=== PATIENT | male | born 1965 ===

== ENCOUNTER 2018-08-05 17:07 | Observation (INO) | payer MEDICAID, MEDICARE ==
[2018-08-05] MEDS ORDERED: Sodium Chloride 0.9% 1,000 ML IV ONE (17:34)
[2018-08-05] MEDS ORDERED: (Novolin R) Insulin Human Regular 100 units/ml vial IVP STA (17:43)
--- NOTE | 2018-08-05 17:48 | C.PDOC ---
History Of Present Illness 52 year old male with hx of IDDM presents to the emergency department with complaints of palpitations and muscle cramps prior to arrival. Patient states that he was driving when he suddenly became lightheaded and had chest tightness. . Patient denies chest pain now and no shortness of breath. He reports feeling better in the ED as of now. Time Seen by Provider: 08/05/18 17:29 Chief Complaint (Nursing): Palpitations History Per: Patient History/Exam Limitations: no limitations Onset/Duration Of Symptoms: Hrs Current Symptoms Are (Timing): Better Quality: denies: "Pain" Associated Symptoms: denies: Nausea, Dyspnea, Diaphoresis, Syncope Past Medical History Reviewed: Historical Data, Nursing Documentation, Vital Signs Vital Signs: Last Vital Signs Temp 98.5 F 08/05/18 17:11 Pulse 87 08/05/18 17:11 Resp 20 08/05/18 17:11 BP 147/89 08/05/18 17:11 Pulse Ox 98 08/05/18 17:11 - Medical History PMH: Asthma, Diabetes, HTN, Hyperlipidemia Surgical History: No Surg Hx Family History: States: No Known Family Hx - Social History Hx Alcohol Use: No Hx Substance Use: No Review Of Systems Except As Marked, All Systems Reviewed And Found Negative. Constitutional: Negative for: Fever, Chills Cardiovascular: Positive for: Palpitations, Light Headedness. Negative for: Chest Pain Respiratory: Negative for: Cough, Shortness of Breath Musculoskeletal: Positive for: Other (muscular cramps) Physical Exam - Physical Exam Appears: Non-toxic, No Acute Distress, Other (generalized weakness) Skin: Normal Color, Warm, Dry Head: Atraumatic, Normacephalic Eye(s): bilateral: Normal Inspection, PERRL, EOMI Nose: Normal Oral Mucosa: Moist Throat: Normal Neck: Normal, Supple Chest: Symmetrical, No Tenderness Cardiovascular: Rhythm Regular, No Murmur Respiratory: Normal Breath Sounds, No Rales, No Rhonchi, No Wheezing Gastrointestinal/Abdominal: Soft, No Tenderness Extremity: Normal ROM Neurological/Psych: Oriented x3, Normal Speech, Normal Cognition ED Course And Treatment - Laboratory Results Result Diagrams: 08/05/18 17:57 08/05/18 17:57 ECG: Interpreted By Me, Viewed By Me ECG Interpretation: Abnormal Interpretation Of ECG: Normal sinus rhythm at 78bpm, non-specific T-wave abnormality. O2 Sat by Pulse Oximetry: 98 (RA) Pulse Ox Interpretation: Normal Reassessment Condition: Improved Medical Decision Making Medical Decision Making: Plan: VBG EKG Chemistry CBC CXR Glucose POC Novolin R 10 unit IVP NaCl IV Fluids Urinalysis Disposition Discussed With DrIsa: Tamiko Hall (accepted) - Disposition Disposition: HOSPITALIZED Disposition Time: 18:59 Condition: STABLE Forms: [employer] [facility] (Croatian) - Clinical Impression Clinical Impression: Palpitations, Uncontrolled diabetes mellitus, Chest pain - Scribe Statement The provider has reviewed the documentation as recorded by the Scribe (Michael Robbinsqvi) Provider Attestation: All medical record entries made by the Scribe were at my direction and personally dictated by me. I have reviewed the chart and agree that the record accurately reflects my personal performance of the history, physical exam, medical decision making, and the department course for this patient. I have also personally directed, reviewed, and agree with the discharge instructions and disposition.
[2018-08-05 17:53] LABS: VENOUS BLOOD GAS BASE EXCESS 1.8 mmol/L (0.0-2.0); VENOUS BLOOD GAS PCO2 53 mmHg (40-60); VENOUS BLOOD GAS PO2 36 mm/Hg (30-55); VENOUS BLOOD PH 7.34 (7.32-7.43)
[2018-08-05] MEDS ORDERED: Sodium Chloride 0.9% 1,000 ML ONE (17:55)
[2018-08-05] MEDS ORDERED: (Novolin R) Insulin Human Regular 100 units/ml vial ONE (17:55)
[2018-08-05 18:03] LABS: BASO % 0.3 % (0.0-2.0); EOS % 0.9 % (0.0-4.0); HEMOGLOBIN 14.9 g/dL (12.0-18.0); LYMPH # 0.8 K/uL (1.0-4.3); LYMPH % 14.7 % (20.0-40.0); MEAN CELL VOLUME 87.9 fL (80.0-94.0); MEAN CORPUSCULAR HGB CONC 33.1 g/dL (33.0-37.0); MEAN PLATELET VOLUME 8.5 fL (7.2-11.7); MONO # 0.3 K/uL (0.0-0.8); MONO % 5.9 % (0.0-10.0); NEUT # 4.1 K/uL (1.8-7.0); NEUT % 78.2 % (50.0-75.0); NRBC % 0.1 % (0.0-2.0); RBC 5.14 Mil/uL (4.40-5.90); RED CELL DISTRIBUTION WIDTH 13.7 % (11.5-14.5); WHITE BLOOD COUNT 5.2 K/uL (4.8-10.8)
[2018-08-05 18:38] LABS: ALB/GLOB RATIO 1.4 (1.0-2.1); ALBUMIN 3.9 g/dL (3.5-5.0); ALT/SGPT 40 U/L (21-72); AST/SGOT 39 U/L (17-59); BLOOD UREA NITROGEN 16 mg/dL (9-20); CALCIUM 8.7 mg/dl (8.6-10.4); GFR NON-AFRICAN AMERICAN > 60
[2018-08-05 19:14] LABS: URINE BILIRUBIN NEGATIVE (NEGATIVE); URINE BLOOD NEGATIVE (NEGATIVE); URINE CLARITY Clear (Clear); URINE COLOR Straw (YELLOW); URINE GLUCOSE (UA) 3+ mg/dL (Normal); URINE LEUKOCYTE ESTERASE NEG Leu/uL (Negative); URINE PROTEIN NEGATIVE (NEGATIVE); URINE UROBILINOGEN NORMAL mg/dL (0.2-1.0)
[2018-08-05 19:42] LABS: VENOUS BLOOD GAS BASE EXCESS 1.5 mmol/L (0.0-2.0); VENOUS BLOOD GAS PCO2 46 mmHg (40-60); VENOUS BLOOD GAS PO2 51 mm/Hg (30-55); VENOUS BLOOD PH 7.38 (7.32-7.43)
--- NOTE | 2018-08-05 20:27 | CP.PCM.HP ---
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 Pt states he was driving his car this morning when he started feeling palpitations requiring him to come to the ED. Pt reports he forgotlevated blood sugars. Patient denies recent travel, sick contacts. to take his AM insulin. Patient denied chest pain, SOB, headaches, fevers, chills, nausea, vomiting, diarrhea, constipation, dysuria, hematuria during episode of palpitations. Patient reports 1 X having similar episode a few years back when he had elevated blood sugars. PMD: Dr. Jones Nogueira PMhx: Asthma, DM, HLD SHx: Hernia surgery, back surgery (unknown) Meds: Insulin (unsure amount and type), Pharmacy: [facility] pharmacy in [place] Allergies: NKDA SHx: Denies tobacco use, ETOH, illicit drug use FHx: Mother - CVA, heard "problems", HTN, HLD, arthritis, Father - diabetes, HLD Present on Admission - Present on Admission Any Indicators Present on Admission: No History of DVT/PE: No History of Uncontrolled Diabetes: No Urinary Catheter: No Decubitus Ulcer Present: No Review of Systems - Review of Systems All systems: reviewed and no additional remarkable complaints except - Constitutional Constitutional: As Per HPI Past Patient History - Past Social History Smoking Status: Never Smoked - CARDIAC Hx Hypertension: Yes - PULMONARY Hx Asthma: Yes - ENDOCRINE/METABOLIC Hx Diabetes Mellitus Type 2: Yes - PSYCHIATRIC Hx Substance Use: No - SURGICAL HISTORY Hx Surgeries: No - ANESTHESIA Hx Anesthesia: No Hx Anesthesia Reactions: No Meds Allergies/Adverse Reactions: Allergies Allergy/AdvReac Type Severity Reaction Status Date / Time No Known Allergies Allergy Unverified 08/05/18 17:11 Physical Exam - Constitutional Appears: Non-toxic, No Acute Distress - Head Exam Head Exam: ATRAUMATIC, NORMAL INSPECTION, NORMOCEPHALIC - Eye Exam Eye Exam: EOMI, Normal appearance, PERRL Pupil Exam: NORMAL ACCOMODATION - ENT Exam ENT Exam: Mucous Membranes Moist - Respiratory Exam Respiratory Exam: Clear to Auscultation Bilateral, NORMAL BREATHING PATTERN. absent: Rales, Rhonchi, Wheezes - Cardiovascular Exam Cardiovascular Exam: +S1, +S2. absent: Systolic Murmur - GI/Abdominal Exam GI & Abdominal Exam: Normal Bowel Sounds, Soft. absent: Distended, Firm, Guarding - Extremities Exam Extremities exam: Negative for: calf tenderness, pedal edema - Back Exam Back exam: absent: CVA tenderness (L), CVA tenderness (R) - Neurological Exam Neurological exam: Alert, Oriented x3 - Psychiatric Exam Psychiatric exam: Normal Affect, Normal Mood - Skin Skin Exam: Dry, Intact, Normal Color, Warm Results - Vital Signs Recent Vital Signs: Last Vital Signs Temp 98.5 F 08/05/18 17:11 Pulse 84 08/05/18 18:58 Resp 18 08/05/18 18:58 BP 143/91 H 08/05/18 18:58 Pulse Ox 98 08/05/18 18:59 - Labs Result Diagrams: 08/05/18 17:57 08/05/18 17:57 Labs: Laboratory Results - last 24 hr 08/05/18 08/05/18 08/05/18 17:38 17:40 17:45 WBC RBC Hgb Hct MCV MCH MCHC RDW Plt Count MPV Neut % (Auto) Lymph % (Auto) Coffee % (Auto) Eos % (Auto) Baso % (Auto) Neut # (Auto) Lymph # (Auto) Coffee # (Auto) Eos # (Auto) Baso # (Auto) pO2 36 VBG pH 7.34 VBG pCO2 53 VBG HCO3 25.4 VBG Total CO2 30.2 H VBG O2 Sat (Calc) 74.1 H VBG Base Excess 1.8 VBG Potassium 4.3 Sodium 136.0 Chloride 101.0 Glucose 583 H* Lactate 2.2 H FiO2 21.0 Crit Value Called To Ed Crit Value Called By Hung sanidad Crit Value Read Back Y Blood Gas Notified Time 1753 Potassium Carbon Dioxide Anion Gap BUN Creatinine Est GFR ( Amer) Est GFR (Non-Af Amer) POC Glucose (mg/dL) > 500 H* > 500 H* Random Glucose Calcium Magnesium Total Bilirubin AST ALT Alkaline Phosphatase Total Creatine Kinase Troponin I Total Protein Albumin Globulin Albumin/Globulin Ratio Venous Blood Potassium 4.3 Urine Color Urine Clarity Urine pH Ur Specific [place] Urine Protein Urine Glucose (UA) Urine Ketones Urine Blood Urine Nitrate Urine Bilirubin Urine Urobilinogen Ur Leukocyte Esterase Urine WBC (Auto) B-Hydroxybutyrate 08/05/18 08/05/18 08/05/18 17:57 17:57 19:06 WBC 5.2 RBC 5.14 Hgb 14.9 Hct 45.2 MCV 87.9 D MCH 29.0 MCHC 33.1 RDW 13.7 Plt Count 198 MPV 8.5 Neut % (Auto) 78.2 H Lymph % (Auto) 14.7 L Coffee % (Auto) 5.9 Eos % (Auto) 0.9 Baso % (Auto) 0.3 Neut # (Auto) 4.1 Lymph # (Auto) 0.8 L Coffee # (Auto) 0.3 Eos # (Auto) 0.0 Baso # (Auto) 0.0 pO2 VBG pH VBG pCO2 VBG HCO3 VBG Total CO2 VBG O2 Sat (Calc) VBG Base Excess VBG Potassium Sodium 133 Chloride 99 Glucose Lactate FiO2 Crit Value Called To Crit Value Called By Crit Value Read Back Blood Gas Notified Time Potassium 4.5 Carbon Dioxide 27 Anion Gap 11 BUN 16 Creatinine 1.0 Est GFR ( Amer) > 60 Est GFR (Non-Af Amer) > 60 POC Glucose (mg/dL) Random Glucose 583 H* D Calcium 8.7 Magnesium 1.8 Total Bilirubin 0.4 AST 39 ALT 40 Alkaline Phosphatase 77 Total Creatine Kinase 397 H Troponin I < 0.0120 Total Protein 6.7 Albumin 3.9 Globulin 2.7 Albumin/Globulin Ratio 1.4 Venous Blood Potassium Urine Color Straw Urine Clarity Clear Urine pH 5.0 Ur Specific [place] 1.030 Urine Protein Negative Urine Glucose (UA) 3+ H Urine Ketones Negative Urine Blood Negative Urine Nitrate Negative Urine Bilirubin Negative Urine Urobilinogen Normal Ur Leukocyte Esterase Neg Urine WBC (Auto) < 1 B-Hydroxybutyrate 0.10 08/05/18 08/05/18 19:07 19:38 WBC RBC Hgb Hct MCV MCH MCHC RDW Plt Count MPV Neut % (Auto) Lymph % (Auto) Coffee % (Auto) Eos % (Auto) Baso % (Auto) Neut # (Auto) Lymph # (Auto) Coffee # (Auto) Eos # (Auto) Baso # (Auto) pO2 51 VBG pH 7.38 VBG pCO2 46 VBG HCO3 25.8 VBG Total CO2 28.6 H VBG O2 Sat (Calc) 89.0 H VBG Base Excess 1.5 VBG Potassium 3.8 Sodium 142.0 Chloride 112.0 H Glucose 166 H Lactate 2.4 H FiO2 Crit Value Called To Crit Value Called By Crit Value Read Back Blood Gas Notified Time Potassium Carbon Dioxide Anion Gap BUN Creatinine Est GFR ( Amer) Est GFR (Non-Af Amer) POC Glucose (mg/dL) 170 H Random Glucose Calcium Magnesium Total Bilirubin AST ALT Alkaline Phosphatase Total Creatine Kinase Troponin I Total Protein Albumin Globulin Albumin/Globulin Ratio Venous Blood Potassium 3.8 Urine Color Urine Clarity Urine pH Ur Specific [place] Urine Protein Urine Glucose (UA) Urine Ketones Urine Blood Urine Nitrate Urine Bilirubin Urine Urobilinogen Ur Leukocyte Esterase Urine WBC (Auto) B-Hydroxybutyrate Assessment & Plan - Assessment and Plan (Free Text) Assessment: 52 M w/ PMHx of DM, asthma, HLD presents for palpitations, BS in ED > 500, pt reports having forgotten insulin today Plan: Palpitations R/o ACS - BRYANT X3 Q6H - EKG x 3 Q6H - initial BRYANT negative, EKG NSR - F/u CXRY official read Elevated blood sugars History of insulin dependent diabetes - Blood sugars > 500 - no anion gap, no acidosis, no urine ketones, no beta hydroxybuterate; lactic 2.4 - 10 units insulin given in ED - ISS, accuchecks ACHS, hypoglycemia protocol - F/u A1C - F/u AM lactic History of HLD - F/u lipid panel in AM PPx: - DVT: heparin 5000 units SC, SCDs - Heart healthy diet, low carbs <Erik Reagan A - Last Filed: 08/06/18 06:11> Results - Vital Signs Recent Vital Signs: Last Vital Signs Temp 97.7 F 08/06/18 03:27 Pulse 58 L 08/06/18 03:27 Resp 18 08/06/18 03:27 BP 177/84 H 08/06/18 03:27 Pulse Ox 100 08/06/18 03:27 - Labs Result Diagrams: 08/05/18 17:57 08/05/18 17:57 Labs: Laboratory Results - last 24 hr 08/05/18 08/05/18 08/05/18 17:38 17:40 17:45 WBC RBC Hgb Hct MCV MCH MCHC RDW Plt Count MPV Neut % (Auto) Lymph % (Auto) Coffee % (Auto) Eos % (Auto) Baso % (Auto) Neut # (Auto) Lymph # (Auto) Coffee # (Auto) Eos # (Auto) Baso # (Auto) pO2 36 VBG pH 7.34 VBG pCO2 53 VBG HCO3 25.4 VBG Total CO2 30.2 H VBG O2 Sat (Calc) 74.1 H VBG Base Excess 1.8 VBG Potassium 4.3 Sodium 136.0 Chloride 101.0 Glucose 583 H* Lactate 2.2 H FiO2 21.0 Crit Value Called To Ed Crit Value Called By [facility] Crit Value Read Back Y Blood Gas Notified Time 1753 Potassium Carbon Dioxide Anion Gap BUN Creatinine Est GFR ( Amer) Est GFR (Non-Af Amer) POC Glucose (mg/dL) > 500 H* > 500 H* Random Glucose Calcium Magnesium Total Bilirubin AST ALT Alkaline Phosphatase Total Creatine Kinase CK-MB (Mass) Troponin I Total Protein Albumin Globulin Albumin/Globulin Ratio Venous Blood Potassium 4.3 Urine Color Urine Clarity Urine pH Ur Specific [place] Urine Protein Urine Glucose (UA) Urine Ketones Urine Blood Urine Nitrate Urine Bilirubin Urine Urobilinogen Ur Leukocyte Esterase Urine WBC (Auto) B-Hydroxybutyrate 08/05/18 08/05/18 08/05/18 17:57 17:57 19:06 WBC 5.2 RBC 5.14 Hgb 14.9 Hct 45.2 MCV 87.9 D MCH 29.0 MCHC 33.1 RDW 13.7 Plt Count 198 MPV 8.5 Neut % (Auto) 78.2 H Lymph % (Auto) 14.7 L Coffee % (Auto) 5.9 Eos % (Auto) 0.9 Baso % (Auto) 0.3 Neut # (Auto) 4.1 Lymph # (Auto) 0.8 L Coffee # (Auto) 0.3 Eos # (Auto) 0.0 Baso # (Auto) 0.0 pO2 VBG pH VBG pCO2 VBG HCO3 VBG Total CO2 VBG O2 Sat (Calc) VBG Base Excess VBG Potassium Sodium 133 Chloride 99 Glucose Lactate FiO2 Crit Value Called To Crit Value Called By Crit Value Read Back Blood Gas Notified Time Potassium 4.5 Carbon Dioxide 27 Anion Gap 11 BUN 16 Creatinine 1.0 Est GFR ( Amer) > 60 Est GFR (Non-Af Amer) > 60 POC Glucose (mg/dL) Random Glucose 583 H* D Calcium 8.7 Magnesium 1.8 Total Bilirubin 0.4 AST 39 ALT 40 Alkaline Phosphatase 77 Total Creatine Kinase 397 H CK-MB (Mass) Troponin I < 0.0120 Total Protein 6.7 Albumin 3.9 Globulin 2.7 Albumin/Globulin Ratio 1.4 Venous Blood Potassium Urine Color Straw Urine Clarity Clear Urine pH 5.0 Ur Specific [place] 1.030 Urine Protein Negative Urine Glucose (UA) 3+ H Urine Ketones Negative Urine Blood Negative Urine Nitrate Negative Urine Bilirubin Negative Urine Urobilinogen Normal Ur Leukocyte Esterase Neg Urine WBC (Auto) < 1 B-Hydroxybutyrate 0.10 08/05/18 08/05/18 08/06/18 19:07 19:38 00:00 WBC RBC Hgb Hct MCV MCH MCHC RDW Plt Count MPV Neut % (Auto) Lymph % (Auto) Coffee % (Auto) Eos % (Auto) Baso % (Auto) Neut # (Auto) Lymph # (Auto) Coffee # (Auto) Eos # (Auto) Baso # (Auto) pO2 51 VBG pH 7.38 VBG pCO2 46 VBG HCO3 25.8 VBG Total CO2 28.6 H VBG O2 Sat (Calc) 89.0 H VBG Base Excess 1.5 VBG Potassium 3.8 Sodium 142.0 Chloride 112.0 H Glucose 166 H Lactate 2.4 H FiO2 Crit Value Called To Crit Value Called By Crit Value Read Back Blood Gas Notified Time Potassium Carbon Dioxide Anion Gap BUN Creatinine Est GFR ( Amer) Est GFR (Non-Af Amer) POC Glucose (mg/dL) 170 H Random Glucose Calcium Magnesium Total Bilirubin AST ALT Alkaline Phosphatase Total Creatine Kinase 288 H CK-MB (Mass) 3.26 Troponin I < 0.0120 Total Protein Albumin Globulin Albumin/Globulin Ratio Venous Blood Potassium 3.8 Urine Color Urine Clarity Urine pH Ur Specific [place] Urine Protein Urine Glucose (UA) Urine Ketones Urine Blood Urine Nitrate Urine Bilirubin Urine Urobilinogen Ur Leukocyte Esterase Urine WBC (Auto) B-Hydroxybutyrate 08/06/18 00:35 WBC RBC Hgb Hct MCV MCH MCHC RDW Plt Count MPV Neut % (Auto) Lymph % (Auto) Coffee % (Auto) Eos % (Auto) Baso % (Auto) Neut # (Auto) Lymph # (Auto) Coffee # (Auto) Eos # (Auto) Baso # (Auto) pO2 VBG pH VBG pCO2 VBG HCO3 VBG Total CO2 VBG O2 Sat (Calc) VBG Base Excess VBG Potassium Sodium Chloride Glucose Lactate FiO2 Crit Value Called To Crit Value Called By Crit Value Read Back Blood Gas Notified Time Potassium Carbon Dioxide Anion Gap BUN Creatinine Est GFR ( Amer) Est GFR (Non-Af Amer) POC Glucose (mg/dL) 279 H Random Glucose Calcium Magnesium Total Bilirubin AST ALT Alkaline Phosphatase Total Creatine Kinase CK-MB (Mass) Troponin I Total Protein Albumin Globulin Albumin/Globulin Ratio Venous Blood Potassium Urine Color Urine Clarity Urine pH Ur Specific [place] Urine Protein Urine Glucose (UA) Urine Ketones Urine Blood Urine Nitrate Urine Bilirubin Urine Urobilinogen Ur Leukocyte Esterase Urine WBC (Auto) B-Hydroxybutyrate Assessment & Plan - Date & Time Date: 08/06/18 (I have seen and examined the patient. I agree with the findings and plan of care as documented by Dr. Casarez. Patient with palpitations. ROMIx3 with EKG. 2D Echo. Repeat EKG. Also with uncontrolled diabetes with hyperglycemia. Noncompliance with home insulin. No evidence of DKA. NISS and accuchecks. Monitor for acute changes.) Time: 06:09 Attending/Attestation - Attestation I have personally seen and examined this patient.: Yes I have fully participated in the care of the patient.: Yes I have reviewed all pertinent clinical information: Yes
[2018-08-05] MEDS ORDERED: Dextrose 50% SYRINGE Inj (50 ml) IV PRN (21:54)
[2018-08-05] MEDS ORDERED: Glucagon Recombinant 1 mg Inj IM PRN (21:54)
[2018-08-05] MEDS ORDERED: Sodium Chloride 0.9% 1,000 ML IV SCH (22:00)
[2018-08-06 00:22] LABS: CK-MB 3.26 ng/mL (0.0-3.38)
[2018-08-06] MEDS: (Novolog) Insulin Aspart, Recombinant 100 u/ml 10 ml vial SC SCH ×2 (00:44→07:45)
[2018-08-06 06:22] LABS: BASO % 0.5 % (0.0-2.0); EOS # 0.1 K/uL (0.0-0.7); EOS % 1.7 % (0.0-4.0); HEMOGLOBIN 13.7 g/dL (12.0-18.0); LYMPH # 1.6 K/uL (1.0-4.3); LYMPH % 30.7 % (20.0-40.0); MEAN CELL VOLUME 86.6 fL (80.0-94.0); MEAN CORPUSCULAR HGB CONC 33.4 g/dL (33.0-37.0); MEAN PLATELET VOLUME 8.3 fL (7.2-11.7); MONO # 0.4 K/uL (0.0-0.8); MONO % 6.9 % (0.0-10.0); NEUT # 3.2 K/uL (1.8-7.0); NEUT % 60.2 % (50.0-75.0); NRBC % 0.2 % (0.0-2.0); RBC 4.73 Mil/uL (4.40-5.90); RED CELL DISTRIBUTION WIDTH 13.9 % (11.5-14.5); WHITE BLOOD COUNT 5.4 K/uL (4.8-10.8)
[2018-08-06 06:29] LABS: PROTHROMBIN TIME 10.9 SECONDS (9.7-12.2)
[2018-08-06 06:45] LABS: CK-MB 2.51 ng/mL (0.0-3.38)
[2018-08-06 06:48] LABS: LDL CHOLESTEROL 132 mg/dL (0-129)
[2018-08-06 06:56] LABS: ALB/GLOB RATIO 1.3 (1.0-2.1); ALBUMIN 3.2 g/dL (3.5-5.0); ALT/SGPT 28 U/L (21-72); AST/SGOT 32 U/L (17-59); BLOOD UREA NITROGEN 14 mg/dL (9-20); GFR NON-AFRICAN AMERICAN > 60; HDL CHOLESTEROL 51 mg/dL (30-70)
[2018-08-06] MEDS ORDERED: Albuterol-Ipratrop 3 mg / 0.5 (3 ml) UD INH PRN (07:46)
--- NOTE | 2018-08-06 07:48 | CP.PCM.PN ---
Objective - Vital Signs/Intake and Output Vital Signs (last 24 hours): Temp Pulse Resp BP Pulse Ox 97.7 F 68 18 144/92 H 100 08/06/18 03:27 08/06/18 06:10 08/06/18 06:00 08/06/18 06:00 08/06/18 06:00 Intake and Output: 08/06/18 08/06/18 06:59 18:59 Intake Total 300 Output Total 300 Balance 0 - Medications Medications: Current Medications Albuterol/Ipratropium (Duoneb 3 Mg/0.5 Mg (3 Ml) Ud) 3 ml INH RQ6 PRN PRN Reason: Shortness of Breath Dextrose (Dextrose 50% Inj) 0 ml IV STAT PRN; Protocol PRN Reason: Hypoglycemia Protocol Dextrose (Glutose 15) 0 gm PO ONCE PRN; Protocol PRN Reason: Hypoglycemia Protocol Glucagon (Glucagen Diagnostic Kit) 0 mg IM STAT PRN; Protocol PRN Reason: Hypoglycemia Protocol Heparin Sodium (Porcine) (Heparin) 5,000 units SC Q8 [facility] Last Admin: 08/06/18 05:53 Dose: 5,000 units Dextrose (Dextrose 5% In Water 1000 Ml) 1,000 mls @ 0 mls/hr IV .Q0M PRN; Protocol PRN Reason: Hypoglycemia Protocol Insulin Aspart (Novolog) 0 unit SC ACHS [facility]; Protocol Last Admin: 08/06/18 07:45 Dose: 2 unit - Labs Labs: 08/06/18 06:00 08/06/18 06:00 PT 10.9 SECONDS (9.7-12.2) 08/06/18 06:00 INR 1.0 08/06/18 06:00 APTT 26 SECONDS (21-34) 08/06/18 06:00
--- NOTE | 2018-08-06 10:43 | RAD ---
HISTORY: SOB COMPARISON: None available. TECHNIQUE: Chest, one view. FINDINGS: Examination limited by habitus and hypoinflation. LUNGS: No focal consolidation. Please note that chest x-ray has limited sensitivity for the detection of pulmonary masses. PLEURA: No significant pleural effusion identified. No definite pneumothorax . CARDIOVASCULAR: Heart size appears within normal limits. OSSEOUS STRUCTURES: Degenerative changes. VISUALIZED UPPER ABDOMEN: Unremarkable. OTHER FINDINGS: None. IMPRESSION: No focal consolidation. Hypoinflation.
[2018-08-06] MEDS ORDERED: (Lantus) Insulin Glargine, Recombinant SC SCH ×2 (11:15→22:00)
[2018-08-06] MEDS: (Novolin R) Insulin Human Regular 100 units/ml vial SC SCH ×2 (11:53→16:37)
[2018-08-06 12:43] VITALS: TEMP 98
[2018-08-06 13:36] LABS: CK-MB 2.03 ng/mL (0.0-3.38)
--- NOTE | 2018-08-06 16:00 | CP.PCM.DIS ---
<Tamiko Hall V - Last Filed: 08/06/18 19:17> Provider - Provider Date of Admission: 08/05/18 18:59 Attending physician: Erik Reagan MD Hospital Course - Lab Results Lab Results: Most Recent Lab Values WBC 5.4 K/uL (4.8-10.8) 08/06/18 06:00 RBC 4.73 Mil/uL (4.40-5.90) 08/06/18 06:00 Hgb 13.7 g/dL (12.0-18.0) 08/06/18 06:00 Hct 40.9 % (35.0-51.0) 08/06/18 06:00 MCV 86.6 fL (80.0-94.0) 08/06/18 06:00 MCH 29.0 pg (27.0-31.0) 08/06/18 06:00 MCHC 33.4 g/dL (33.0-37.0) 08/06/18 06:00 RDW 13.9 % (11.5-14.5) 08/06/18 06:00 Plt Count 176 K/uL (130-400) 08/06/18 06:00 MPV 8.3 fL (7.2-11.7) 08/06/18 06:00 Neut % (Auto) 60.2 % (50.0-75.0) 08/06/18 06:00 Lymph % (Auto) 30.7 % (20.0-40.0) 08/06/18 06:00 [place] % (Auto) 6.9 % (0.0-10.0) 08/06/18 06:00 Eos % (Auto) 1.7 % (0.0-4.0) 08/06/18 06:00 Baso % (Auto) 0.5 % (0.0-2.0) 08/06/18 06:00 Neut # (Auto) 3.2 K/uL (1.8-7.0) 08/06/18 06:00 Lymph # (Auto) 1.6 K/uL (1.0-4.3) 08/06/18 06:00 [place] # (Auto) 0.4 K/uL (0.0-0.8) 08/06/18 06:00 Eos # (Auto) 0.1 K/uL (0.0-0.7) 08/06/18 06:00 Baso # (Auto) 0.0 K/uL (0.0-0.2) 08/06/18 06:00 PT 10.9 SECONDS (9.7-12.2) 08/06/18 06:00 INR 1.0 08/06/18 06:00 APTT 26 SECONDS (21-34) 08/06/18 06:00 pO2 51 mm/Hg (30-55) 08/05/18 19:38 VBG pH 7.38 (7.32-7.43) 08/05/18 19:38 VBG pCO2 46 mmHg (40-60) 08/05/18 19:38 VBG HCO3 25.8 mmol/L 08/05/18 19:38 VBG Total CO2 28.6 mmol/L (22-28) H 08/05/18 19:38 VBG O2 Sat (Calc) 89.0 % (40-65) H 08/05/18 19:38 VBG Base Excess 1.5 mmol/L (0.0-2.0) 08/05/18 19:38 VBG Potassium 3.8 mmol/L (3.6-5.2) 08/05/18 19:38 Sodium 142.0 mmol/l (132-148) 08/05/18 19:38 Chloride 112.0 mmol/L (98-107) H 08/05/18 19:38 Glucose 166 mg/dl (75-110) H 08/05/18 19:38 Lactate 2.4 mmol/L (0.7-2.1) H 08/05/18 19:38 FiO2 21.0 % 08/05/18 17:45 Crit Value Called To Ed 08/05/18 17:45 Crit Value Called By [facility] 08/05/18 17:45 Crit Value Read Back Y 08/05/18 17:45 Blood Gas Notified Time 1753 08/05/18 17:45 Sodium 136 mmol/L (132-148) 08/06/18 06:00 Potassium 3.8 mmol/L (3.6-5.2) 08/06/18 06:00 Chloride 108 mmol/L (98-107) H 08/06/18 06:00 Carbon Dioxide 25 mmol/L (22-30) 08/06/18 06:00 Anion Gap 7 (10-20) L 08/06/18 06:00 BUN 14 mg/dL (9-20) 08/06/18 06:00 Creatinine 0.7 mg/dL (0.8-1.5) L 08/06/18 06:00 Est GFR ( Amer) > 60 08/06/18 06:00 Est GFR (Non-Af Amer) > 60 08/06/18 06:00 POC Glucose (mg/dL) 279 mg/dL (65-110) H 08/06/18 00:35 Random Glucose 242 mg/dL (75-110) H D 08/06/18 06:00 Hemoglobin A1c 11.2 % (4.2-6.5) H 08/06/18 06:00 Lactic Acid 1.4 mmol/L (0.7-2.1) 08/06/18 06:00 Calcium 8.0 mg/dl (8.6-10.4) L 08/06/18 06:00 Phosphorus 2.6 mg/dL (2.5-4.5) 08/06/18 06:00 Magnesium 1.7 mg/dL (1.6-2.3) 08/06/18 06:00 Total Bilirubin 0.4 mg/dL (0.2-1.3) 08/06/18 06:00 AST 32 U/L (17-59) 08/06/18 06:00 ALT 28 U/L (21-72) 08/06/18 06:00 Alkaline Phosphatase 60 U/L (38-126) 08/06/18 06:00 Total Creatine Kinase 212 U/L (55-170) H 08/06/18 13:03 CK-MB (Mass) 2.03 ng/mL (0.0-3.38) 08/06/18 13:03 Troponin I < 0.0120 ng/mL (0.00-0.120) 08/06/18 13:03 Total Protein 5.7 g/dL (6.3-8.3) L 08/06/18 06:00 Albumin 3.2 g/dL (3.5-5.0) L 08/06/18 06:00 Globulin 2.5 gm/dL (2.2-3.9) 08/06/18 06:00 Albumin/Globulin Ratio 1.3 (1.0-2.1) 08/06/18 06:00 Triglycerides 117 mg/dL (0-149) 08/06/18 06:00 Cholesterol 216 mg/dL (0-199) H 08/06/18 06:00 LDL Cholesterol Direct 132 mg/dL (0-129) H 08/06/18 06:00 HDL Cholesterol 51 mg/dL (30-70) 08/06/18 06:00 Free T4 0.99 ng/dL (0.78-2.19) 08/06/18 06:00 TSH 3rd Generation 1.30 mIU/L (0.46-4.68) 08/06/18 06:00 Venous Blood Potassium 3.8 mmol/L (3.6-5.2) 08/05/18 19:38 Urine Color Straw (YELLOW) 08/05/18 19:06 Urine Clarity Clear (Clear) 08/05/18 19:06 Urine pH 5.0 (5.0-8.0) 08/05/18 19:06 Ur Specific [place] 1.030 (1.003-1.030) 08/05/18 19:06 Urine Protein Negative mg/dL (NEGATIVE) 08/05/18 19:06 Urine Glucose (UA) 3+ mg/dL (Normal) H 08/05/18 19:06 Urine Ketones Negative mg/dL (NEGATIVE) 08/05/18 19:06 Urine Blood Negative (NEGATIVE) 08/05/18 19:06 Urine Nitrate Negative (NEGATIVE) 08/05/18 19:06 Urine Bilirubin Negative (NEGATIVE) 08/05/18 19:06 Urine Urobilinogen Normal mg/dL (0.2-1.0) 08/05/18 19:06 Ur Leukocyte Esterase Neg Agnieszka/uL (Negative) 08/05/18 19:06 Urine WBC (Auto) < 1 /hpf (0-5) 08/05/18 19:06 B-Hydroxybutyrate 0.10 mM (0.02-0.27) 08/05/18 17:57 Discharge Plan - Follow Up Plan Condition: STABLE Disposition: HOME/ ROUTINE Instructions: Chest Pain That Is Not Caused by the Heart (DC), Chest Pain (DC), Diabetes Type 2 (DC), Heart Disease in Diabetics (DC), Palpitations (DC), Diabetes and Diet, How to Keep Track of Your Blood Sugar Additional Instructions: Pt is medically stable for discharge home as per Dr. Hall. Pt should continue taking his home medications as previously prescribed. Pt should follow up with his PMD, Dr. Simmons, within 2 weeks of discharge. Should symptoms worsen, please return to Emergency Department for further evaluation. Instructions explained to the pt, who understands and agrees with discharge plan. Attending/Attestation - Attestation I have personally seen and examined this patient.: Yes I have fully participated in the care of the patient.: Yes I have reviewed all pertinent clinical information, including history, physical exam and plan: Yes Notes (Text): Patient seen, examined, and case discussed with medical records director. Patient seen this morning with resident. He reports he forgets to take his insulin sometimes though he has been a diabetic since 2002 but he felt palpitations for the first time when he missed his dose which prompted him to come. Patient reports he no longer has palpitations, denies shortness of breathe, nor palpations. Cardiac enzymes negative times four. He is strongly re- emphasized to be compliant on his insulin regiment. Patient last saw his PMD about 3-4 weeks ago. He is emphasized to followup with his PMD, Dr Arsi Simmons. Thyroid is benign. Echocardiogram completed while in house pending read. Lactic acid normalized. He is emphasized diet modifications for his diabetes and lipid disorder. H Patient medically stable for discharge. If symptoms recurred advised to come back to the emergency room immediately. This is a brief summary of patient's hospitalization. Please see EMR for full detail of record. <Parker Reynoso - Last Filed: 08/06/18 20:29> Provider - Provider Date of Admission: 08/05/18 18:59 Attending physician: Erik Reagan MD Time Spent in preparation of Discharge (in minutes): 35 Diagnosis - Discharge Diagnosis (1) Palpitations Status: Resolved (2) Uncontrolled diabetes mellitus Status: Acute Hospital Course - Lab Results Lab Results: Most Recent Lab Values WBC 5.4 K/uL (4.8-10.8) 08/06/18 06:00 RBC 4.73 Mil/uL (4.40-5.90) 08/06/18 06:00 Hgb 13.7 g/dL (12.0-18.0) 08/06/18 06:00 Hct 40.9 % (35.0-51.0) 08/06/18 06:00 MCV 86.6 fL (80.0-94.0) 08/06/18 06:00 MCH 29.0 pg (27.0-31.0) 08/06/18 06:00 MCHC 33.4 g/dL (33.0-37.0) 08/06/18 06:00 RDW 13.9 % (11.5-14.5) 08/06/18 06:00 Plt Count 176 K/uL (130-400) 08/06/18 06:00 MPV 8.3 fL (7.2-11.7) 08/06/18 06:00 Neut % (Auto) 60.2 % (50.0-75.0) 08/06/18 06:00 Lymph % (Auto) 30.7 % (20.0-40.0) 08/06/18 06:00 [place] % (Auto) 6.9 % (0.0-10.0) 08/06/18 06:00 Eos % (Auto) 1.7 % (0.0-4.0) 08/06/18 06:00 Baso % (Auto) 0.5 % (0.0-2.0) 08/06/18 06:00 Neut # (Auto) 3.2 K/uL (1.8-7.0) 08/06/18 06:00 Lymph # (Auto) 1.6 K/uL (1.0-4.3) 08/06/18 06:00 [place] # (Auto) 0.4 K/uL (0.0-0.8) 08/06/18 06:00 Eos # (Auto) 0.1 K/uL (0.0-0.7) 08/06/18 06:00 Baso # (Auto) 0.0 K/uL (0.0-0.2) 08/06/18 06:00 PT 10.9 SECONDS (9.7-12.2) 08/06/18 06:00 INR 1.0 08/06/18 06:00 APTT 26 SECONDS (21-34) 08/06/18 06:00 pO2 51 mm/Hg (30-55) 08/05/18 19:38 VBG pH 7.38 (7.32-7.43) 08/05/18 19:38 VBG pCO2 46 mmHg (40-60) 08/05/18 19:38 VBG HCO3 25.8 mmol/L 08/05/18 19:38 VBG Total CO2 28.6 mmol/L (22-28) H 08/05/18 19:38 VBG O2 Sat (Calc) 89.0 % (40-65) H 08/05/18 19:38 VBG Base Excess 1.5 mmol/L (0.0-2.0) 08/05/18 19:38 VBG Potassium 3.8 mmol/L (3.6-5.2) 08/05/18 19:38 Sodium 142.0 mmol/l (132-148) 08/05/18 19:38 Chloride 112.0 mmol/L (98-107) H 08/05/18 19:38 Glucose 166 mg/dl (75-110) H 08/05/18 19:38 Lactate 2.4 mmol/L (0.7-2.1) H 08/05/18 19:38 FiO2 21.0 % 08/05/18 17:45 Crit Value Called To Ed 08/05/18 17:45 Crit Value Called By [facility] 08/05/18 17:45 Crit Value Read Back Y 08/05/18 17:45 Blood Gas Notified Time 1754 08/05/18 17:45 Sodium 136 mmol/L (132-148) 08/06/18 06:00 Potassium 3.8 mmol/L (3.6-5.2) 08/06/18 06:00 Chloride 108 mmol/L (98-107) H 08/06/18 06:00 Carbon Dioxide 25 mmol/L (22-30) 08/06/18 06:00 Anion Gap 7 (10-20) L 08/06/18 06:00 BUN 14 mg/dL (9-20) 08/06/18 06:00 Creatinine 0.7 mg/dL (0.8-1.5) L 08/06/18 06:00 Est GFR ( Amer) > 60 08/06/18 06:00 Est GFR (Non-Af Amer) > 60 08/06/18 06:00 POC Glucose (mg/dL) 279 mg/dL (65-110) H 08/06/18 00:35 Random Glucose 242 mg/dL (75-110) H D 08/06/18 06:00 Hemoglobin A1c 11.2 % (4.2-6.5) H 08/06/18 06:00 Lactic Acid 1.4 mmol/L (0.7-2.1) 08/06/18 06:00 Calcium 8.0 mg/dl (8.6-10.4) L 08/06/18 06:00 Phosphorus 2.6 mg/dL (2.5-4.5) 08/06/18 06:00 Magnesium 1.7 mg/dL (1.6-2.3) 08/06/18 06:00 Total Bilirubin 0.4 mg/dL (0.2-1.3) 08/06/18 06:00 AST 32 U/L (17-59) 08/06/18 06:00 ALT 28 U/L (21-72) 08/06/18 06:00 Alkaline Phosphatase 60 U/L (38-126) 08/06/18 06:00 Total Creatine Kinase 212 U/L (55-170) H 08/06/18 13:03 CK-MB (Mass) 2.03 ng/mL (0.0-3.38) 08/06/18 13:03 Troponin I < 0.0120 ng/mL (0.00-0.120) 08/06/18 13:03 Total Protein 5.7 g/dL (6.3-8.3) L 08/06/18 06:00 Albumin 3.2 g/dL (3.5-5.0) L 08/06/18 06:00 Globulin 2.5 gm/dL (2.2-3.9) 08/06/18 06:00 Albumin/Globulin Ratio 1.3 (1.0-2.1) 08/06/18 06:00 Triglycerides 117 mg/dL (0-149) 08/06/18 06:00 Cholesterol 216 mg/dL (0-199) H 08/06/18 06:00 LDL Cholesterol Direct 132 mg/dL (0-129) H 08/06/18 06:00 HDL Cholesterol 51 mg/dL (30-70) 08/06/18 06:00 Free T4 0.99 ng/dL (0.78-2.19) 08/06/18 06:00 TSH 3rd Generation 1.30 mIU/L (0.46-4.68) 08/06/18 06:00 Venous Blood Potassium 3.8 mmol/L (3.6-5.2) 08/05/18 19:38 Urine Color Straw (YELLOW) 08/05/18 19:06 Urine Clarity Clear (Clear) 08/05/18 19:06 Urine pH 5.0 (5.0-8.0) 08/05/18 19:06 Ur Specific [place] 1.030 (1.003-1.030) 08/05/18 19:06 Urine Protein Negative mg/dL (NEGATIVE) 08/05/18 19:06 Urine Glucose (UA) 3+ mg/dL (Normal) H 08/05/18 19:06 Urine Ketones Negative mg/dL (NEGATIVE) 08/05/18 19:06 Urine Blood Negative (NEGATIVE) 08/05/18 19:06 Urine Nitrate Negative (NEGATIVE) 08/05/18 19:06 Urine Bilirubin Negative (NEGATIVE) 08/05/18 19:06 Urine Urobilinogen Normal mg/dL (0.2-1.0) 08/05/18 19:06 Ur Leukocyte Esterase Neg Agnieszka/uL (Negative) 08/05/18 19:06 Urine WBC (Auto) < 1 /hpf (0-5) 08/05/18 19:06 B-Hydroxybutyrate 0.10 mM (0.02-0.27) 08/05/18 17:57 - Hospital Course Hospital Course: On admission: 52 M w/ PMhx of insulin dependent diabetes presents to ED for palpitations. Pt states he was driving his car this morning when he started feeling palpitations requiring him to come to the ED. Pt reports he forgotlevated blood sugars. Patient denies recent travel, sick contacts. to take his AM insulin. Patient denied chest pain, SOB, headaches, fevers, chills, nausea, vomiting, diarrhea, constipation, dysuria, hematuria during episode of palpitations. Patient reports 1 X having similar episode a few years back when he had elevated blood sugars. Hospital course: Blood glucose noted to be elevated, greater than 500 on admission. Pt was given Humulog 10 units in the ED, with improvement of glucose levels. Lactate elevated x2 on night of admission, but normalized day following admission after IVF. Troponin x4 negative. CXR showed no focal consolidation, or acute cardiopulmonary pathology. EKG on admission shows NSR, no acute STTW changes. HgbA1c 11.2. EKG prior to similar to original EKG on admission; NSR, without acute STTW changes. Echocardiogram completed, but reading is pending. On discharge interview, pt denies any symptoms at this time. Palpitations have resolved, he denies chest pain, sob, abdominal pain, neurological changes. Pt reports that although he has had DM2 for many years, he sometimes forgets to take his insulin and has hyperglycemic episodes. I informed pt of his HgbA1c, and instructed him on proper diet changes to bring this number down. I informed pt on dietary modifications needed to prevent terminal makeup operator sequelae of uncontrolled HTN, diabetes and elevated lipids. This is a summary of hospital course. Please see EMR for full details. Discharge Exam - Head Exam Head Exam: ATRAUMATIC, NORMAL INSPECTION, NORMOCEPHALIC - Eye Exam Eye Exam: EOMI, Normal appearance - ENT Exam ENT Exam: Mucous Membranes Moist - Respiratory Exam Respiratory Exam: Clear to PA & Lateral. absent: Rales, Rhonchi, Wheezes, Respiratory Distress - Cardiovascular Exam Cardiovascular Exam: REGULAR RHYTHM, +S1, +S2. absent: Tachycardia, JVD - GI/Abdominal Exam GI & Abdominal Exam: Normal Bowel Sounds, Soft. absent: Distended, Firm, Guarding, Rebound, Tenderness - Extremities Exam Extremities exam: normal inspection, pedal pulses present Additional comments: no pedal edema - Neurological Exam Neurological exam: Alert - Psychiatric Exam Psychiatric exam: Normal Affect, Normal Mood - Skin Skin Exam: Dry, Normal Color, Warm
[2018-08-06 16:07] VITALS: BP 128/64; RESP 15; O2SAT 98
[2018-08-06 17:21] VITALS: PULSE 74
--- NOTE | 2018-08-06 23:49 | CARD ---
APPROVED REPORT Date of service: 08/06/2018 EXAM: Two-dimensional and M-mode echocardiogram with Doppler and color Doppler. Other Information Quality : GoodRhythm : INDICATION Chest Pain Palpitations RISK FACTORS Hypertension Hyperlipidemia Diabetes 2D DIMENSIONS IVSd0.9 (0.7-1.1cm)LVDd4.7 (3.9-5.9cm) PWd0.9 (0.7-1.1cm)LA Drdrau24 (18-58mL) LVDs3.1 (2.5-4.0cm)FS (%) 34.2 % LVEF (%)63.2 (>50%)LVEF ([facility])68.95 % IVC0.00 cm M-Mode DIMENSIONS RVDd2.16 (2.1-3.2cm)Left Atrium (MM)3.87 (2.5-4.0cm) IVSd0.82 (0.7-1.1cm)Aortic Root3.21 (2.2-3.7cm) LVDd4.78 (4.0-5.6cm)Aortic Cusp Exc.2.13 (1.5-2.0cm) PWd0.82 (0.7-1.1cm)FS (%) 34 % LVDs3.14 (2.0-3.8cm)LVEF (%)63 (>50%) Mitral Valve MV E Cfvdiqto92.6cm/sMV A Hgjxedye84.4cm/sE/A ratio1.2 TDI Lateral E' Peak V11.00cm/sMedial E' Peak V8.74cm/sE/Lateral E'8.4 E/Medial E'10.6 Tricuspid Valve TR Peak [id number]/sTR Peak Gr.[id number] LEFT VENTRICLE The left ventricle is normal size. There is normal left ventricular wall thickness. Left ventricle systolic function is normal. The Ejection Fraction is 65-70%. There is normal LV segmental wall motion. The left ventricular diastolic function is normal. No left ventricle thrombus noted on this study. RIGHT VENTRICLE The right ventricle is normal size. There is normal right ventricular wall thickness. The right ventricular systolic function is normal. ATRIA The left atrium size is normal. The right atrium size is normal. The interatrial septum is intact with no evidence for an atrial septal defect. AORTIC VALVE The aortic valve is normal in structure. There is mild aortic regurgitation. There is no aortic valvular stenosis. There is no aortic valvular vegetation. MITRAL VALVE The mitral valve is normal in structure. There is no evidence of mitral valve prolapse. There is no mitral valve stenosis. Mitral regurgitation is mild. TRICUSPID VALVE The tricuspid valve is normal in structure. There is mild tricuspid regurgitation. Right ventricular systolic pressure is estimated at less than 30 mmHg. There is no pulmonary hypertension. PULMONIC VALVE The pulmonic valve is not well visualized. There is no pulmonic valvular regurgitation. GREAT VESSELS The aortic root is normal in size. PERICARDIAL EFFUSION There is no significant pericardial effusion. <Conclusion> Left ventricle systolic function is normal. The Ejection Fraction is 65-70%. There is mild aortic regurgitation. There is mild aortic regurgitation. Mitral regurgitation is mild. There is mild tricuspid regurgitation. There is no pulmonary hypertension. There is no pulmonic valvular regurgitation.
--- NOTE | 2018-08-08 22:46 | CARD ---
APPROVED REPORT Date of service: 08/06/2018 EKG Measurement Heart [id number] <Conclusion> Normal sinus rhythm Left axis deviation Nonspecific T wave abnormality Abnormal ECG
== END 2018-08-06 18:30 | disposition home or self-care (01) ==
LOC: C.ER 17:07 → C.9E 18:59 → C.9I 08-06 02:07
PROVIDERS: ADMIT Family Medicine; ATTEND Family Medicine
DX: E11.65 Type 2 diabetes mellitus with hyperglycemia (principal); I10 Essential (primary) hypertension; J45.909 Unspecified asthma, uncomplicated; E78.5 Hyperlipidemia, unspecified; R00.2 Palpitations
CPT/HCPCS: 71045; 80053; 80061; 81001; 82009; 82550; 82803; 82948; 83036; 83605; 83735; 84100; 84439; 84443; 84484; 85025; 85610; 85730; 87070; 87081; 93306; 94660; 96361; 96372; 96374; 99285; G0378; J1644; J7030